=== PATIENT | female | born 1980 | race Caucasian/White ===

== ENCOUNTER 2016-11-20 22:42 | Emergency (ER) | payer BC ==
[2016-11-20 22:45] LABS: WBC (NOT ORDERED) (RFLEX) 0 (0-5)
[2016-11-20 22:47] LABS: BASOPHILS 0.5 %; BASOPHILS ABSOLUTE 0.05 10/3/uL (0.0-0.16); EOSINOPHILS 2.6 %; EOSINOPHILS ABSOLUTE 0.25 10/3/uL (0.0-0.53); ER CBC TAT 0 Hrs 03 Mins; HEMATOCRIT 32.4 % (36.0-48.0); IMMATURE GRANULOCYTES 0.2 %; IMMATURE GRANULOCYTES ABSOLUTE 0.02 10/3/uL (0.0-0.11); LYMPHOCYTES 31.4 %; LYMPHOCYTES ABSOLUTE 3.02 10/3/uL (0.67-4.30); MANUAL DIFF NO %; MEAN CORPUS HGB CONC 30.9 g/dL (32.0-36.0); MEAN CORPUSCULAR HEMOGLOB 22.9 pg (26.0-34.0); MEAN CORPUSCULAR VOLUME 74.1 fL (80-100); MONOCYTES 9.6 %; MONOCYTES ABSOLUTE 0.92 10/3/uL (0.21-1.20); NEUTROPHILS 55.7 %; NEUTROPHILS ABSOLUTE 5.36 10/3/uL (2.02-8.40); PLATELET COUNT 443 10/3/uL (150-400); RBC DISTRIBUTION WIDTH 16.1 % (12.0-16.0); RED CELL COUNT 4.37 10/6/uL (4.0-5.6); WHITE BLOOD CELLS 9.6 10/3/uL (4.5-10.5)
[2016-11-20 22:54] LABS: ASCORBIC ACID (UR NOT ORDER) NEG (NEG); BILIRUBIN, URINE NEGATIVE (NEG); ER URINALYSIS TAT 0 Hrs 10 Mins; KETONE, URINE NEGATIVE (NEG); LEUKOCYTE ESTERASE(NOT OR NEG (NEG); NITRITE (URINE) NEG (NEG)
[2016-11-20 23:03] LABS: ALBUMIN 3.7 G/DL (3.5-5.0); ALKALINE PHOSPHATASE 61 U/L (45-117); BUN (BLOOD UREA NITROGEN) 14 MG/DL (6-23); CALCIUM, SERUM 8.8 MG/DL (8.5-10.4); CHLORIDE, SERUM 108 MMOL/L (96-112); CO2 (CARBON DIOXIDE) 29 MMOL/L (24-34); CREATININE 0.75 MG/DL (0.55-1.02); GFR AFRICAN AMERICAN 121 ML/MIN (>=60); GFR NON AFRICAN AMERICAN 104 ML/MIN (>=60); GLOBULIN 3.7 G/DL (2.5-4.1); GLUCOSE, SERUM 88 MG/DL (60-99); SGOT(AST) 11 U/L (5-40); SGPT(ALT) 20 U/L (5-65); SODIUM, SERUM 142 MMOL/L (135-148); TOTAL BILIRUBIN 0.2 MG/DL (0-1.2); TOTAL PROTEIN 7.4 G/DL (6.0-8.5)
[2016-11-20 23:20] LABS: PLATELET ESTIMATE ADQ (ADEQUATE)
[2016-11-20 23:21] LABS: MICROCYTES 1+ (5-10/OIF) (0-5/OIF)
[2017-01-13] MEDS ORDERED: FIORINALC PO (16:17)
[2017-01-13] MEDS ORDERED: CIP5 PO (16:19)
[2017-01-13] MEDS ORDERED: FLEX PO (16:19)
[2017-01-13] MEDS ORDERED: ESTRADIOL2 MG PO (16:20)
[2017-01-17] MEDS ORDERED: ZOFRAN ODT4 MG PO (07:59)
[2017-01-17] MEDS ORDERED: NORCO1 TA1 PO (07:59)
== END 2016-11-21 01:20 | disposition home or self-care (01) ==
LOC: ER 22:42
PROVIDERS: Nurse Practitioner Acute Care
DX: H83.03 Labyrinthitis, bilateral (principal); R55 Syncope and collapse
CPT/HCPCS: 70450; 70486; 80053; 81001; 85025; 93005; 99284